=== PATIENT | male | born 1955 | race Caucasian/White ===

== ENCOUNTER → 2017-08-19 | Outpatient (REF) | payer SELFPAY ==
[~2017-08-19] MED LIST: ASP325 PO; AZIT-9 PO; HCTZ PO; LIS10; LISI-362 PO; LOR5 PO; MET500; OMEP-218 PO; SIMV10TA98 PO
== END ==
LOC: ZZSENDIN 10:02
PROVIDERS: ATTEND Physician Assistant Medical
DX: R07.89 Other chest pain (principal)
CPT/HCPCS: 84484

== ENCOUNTER → 2017-11-11 | Outpatient (CLI) | payer SELFPAY ==
--- NOTE | 2017-11-11 11:38 | RADIOLOGY IMAGING REPORT ---
FACILITY: [facility] - [place], [place] PATIENT NAME: Dedrick Estevez : 1955 MR: [id number] V: [id number] EXAM DATE: ORDERING PHYSICIAN: PARKER CORTEZ TECHNOLOGIST: Location: [facility] [place] Patient: Dedrick Estevez : 1955 Visit/Account:[id number] Date of Sevice: 11/11/2017 Exam type: HAND COMPLETE LEFT History: Pain in left hand with swelling Comparison: February 20, 2007. Findings: There is a small metallic density foreign body projecting in the subcutaneous soft tissues adjacent t o the proximal phalanx of the left thumb was present on the prior study.. There are mild to moderate degenerative changes seen throughout the interphalangeal joints most prominent involving the DIP danielle nts which are slightly increased when compared to the prior study. There are mild to moderate degene rative changes seen at the radiocarpal joint and mild degenerative changes involving the first carpom etacarpal articulation IMPRESSION: 1. Degenerative changes of the left hand as described above slightly increased when compared the elie or study at the DIP joints Report Dictated By: Ruby Araya MD at 11/11/2017 11:31 AM Report E-Signed By: Ruby Araya MD at 11/11/2017 11:35 AM WSN:[email or web address]
== END ==
LOC: RAD 11:02
PROVIDERS: ATTEND Physician Assistant Medical
DX: M81.0 Age-related osteoporosis without current pathological fracture (principal); M79.5 Residual foreign body in soft tissue

== ENCOUNTER 2017-12-07 17:38 | Emergency (ER) | payer OTHER ==
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
[2017-12-07] MEDS ORDERED: traMADol 50 MG TAB PO ONE (17:55)
--- NOTE | 2017-12-07 19:42 | RADIOLOGY IMAGING REPORT ---
FACILITY: [facility] PATIENT NAME: Dedrick Estevez : 1955 MR: [id number] V: [id number] EXAM DATE: ORDERING PHYSICIAN: HARSHAL ROSADO TECHNOLOGIST: Location: [facility] [place] Patient: Dedrick Estevez : 1955 Visit/Account:[id number] Date of Sevice: 12/07/2017 KNEE 3 VIEW RIGHT Indication: Right knee pain after injury on Thursday. Comparison: None available Findings: 3 views right knee were obtained. No fracture or dislocation. No significant joint effusion. No bony lesions. There is tricompartmental osteoarthritic changes was are at least mild. These include joint space narrowing, osteophytes and t ibial eminence spurring. Soft tissues show mild edema. No radiopaque foreign body. IMPRESSION: 1.No acute osseous abnormality of the right knee 2. Osteoarthritis. Report Dictated By: Bruce Eastman at 12/07/2017 7:35 PM Report E-Signed By: Bruce Eastman at 12/07/2017 7:37 PM WSN:[id number]
--- NOTE | 2017-12-07 19:43 | RADIOLOGY IMAGING REPORT ---
FACILITY: [facility] - [place] PATIENT NAME: Dedrick Estevez : 1955 MR: [id number] V: [id number] EXAM DATE: ORDERING PHYSICIAN: HARSHAL ROSADO TECHNOLOGIST: Location: [facility] - [place] Patient: Dedrick Estevez : 1955 Visit/Account:[id number] Date of Sevice: 12/07/2017 TIBIA FIBULA RIGHT Indication: Right lower leg pain after injury on Thursday. Comparison: None available Findings: Two views right tibia and fibula show no acute fracture or dislocation. No bony lesions or past abnor mality. Soft tissue edema seen anteriorly. The superior anterior soft tissues do show couple tiny densities which could be calcifications or rad iopaque foreign body. IMPRESSION: No acute osseous abnormality right tibia/fibula. A couple tiny densities in the anterior soft tissue s could represent calcifications or tiny radiopaque foreign body. Report Dictated By: Bruce Eastman at 12/07/2017 7:37 PM Report E-Signed By: Bruce Eastman at 12/07/2017 7:39 PM WSN:[id number]
[2017-12-07] MEDS ORDERED: TRAM-420 PO (19:44)
[2017-12-07] MEDS ORDERED: traMADol 50 MG TAB TH 2 TAB/BOTTLE PO ONE (19:45)
[2017-12-07 19:47] VITALS: BP 147/96
== END 2017-12-07 20:00 | disposition home or self-care (01) ==
LOC: ER 18:07
DX: S83.91XA Sprain of unspecified site of right knee, initial encounter (principal)
CPT/HCPCS: 73562; 73590; 99284; L1830

== ENCOUNTER → 2018-02-09 | Outpatient (CLI) | payer OTHER ==
[~2018-02-09] MED LIST changes: +REGADENOSON 0.4 MG/5 ML SYR ONE; +TRAM-420 PO
--- NOTE | 2018-02-09 18:31 | RT STRESS TEST REPORT ---
FACILITY: [facility] - [place], [place] PATIENT NAME: ANAND BRUNSON : [id number] MR: [id number] V: [id number] EXAM DATE: ORDERING PHYSICIAN: SCOT REARDON TECHNOLOGIST: Pedro Acquisition Time: 2018-02-09 14:31:25 Total Exercise Time: 00:01:00 Test Indications: Post DC Medications: SEE NUC MED SHEET Protocol: LEXISCAN Max HR: 092 BPM 58% of Pred: 157 BPM Max BP: 161/093 mmHG Max Work Load: 1.0 METS He had no chest pain or ST depression during the test. See the nuclear images for details. Confirmed by ERICK GUTIERREZ ([id number]) on 02/09/2018 6:32:30 PM Referred By: Scot Hurtado Overread By: ERICK GUTIERREZ
--- NOTE | 2018-02-10 12:08 | RADIOLOGY IMAGING REPORT ---
FACILITY: [facility] - [place] PATIENT NAME: Dedrick Estevez : 1955 MR: [id number] V: [id number] EXAM DATE: ORDERING PHYSICIAN: SCOT REARDON TECHNOLOGIST: Location: [facility] - [place] Patient: Dedrick Estevez : 1955 Visit/Account:[id number] Date of Sevice: 02/09/2018 EXAMINATION: Single isotope SPECT imaging with regadenoson infusion and gated SPECT imaging. DATE OF EXAMINATION: February 09, 2018. DATE OF INTERPRETATION: February 10, 2018. REQUESTING PHYSICIAN: SCOT REARDON. INDICATION: The patient is a 62-year-old male evaluated for chest pain. PROCEDURE: After informed consent the patient received an intravenous injection of 12.3 mCi of Tc-99 m sestamibi followed at an appropriate time interval by rest imaging. The patient then subsequently received an intravenous infusion of 0.4 mg of regadenoson per protocol without complication. Resting heart rate was 67 bpm with a peak heart rate of 92 bpm. Blood pressure at rest was 148 / 103 and fo llowing infusion was 153 / 94. Baseline EKG demonstrates normal sinus rhythm with poor R-wave progre ssion. There were no EKG changes of ischemia following infusion. Symptoms were nonspecific. The pa tient then received an intravenous injection of 29.7 mCi of Tc-99m sestamibi followed by stress imagi ng. RAW DATA: Examination of the summed raw data revealed a good quality study. MYOCARDIAL PERFUSION: The tomographic images demonstrate a mild decrease in myocardial perfusion tra cer uptake in the basal inferior wall seen on both stress and rest images. No reversible defect noted . GATED IMAGES: The gated images demonstrate an ejection fraction 67% with no wall motion abnormality. IMPRESSION: 1. Normal myocardial perfusion scan with no evidence of ischemia. The mild fixed defect in the basal inferior wall is likely diaphragm attenuation artifact 2. Normal myocardial perfusion scan. 3. Normal LV systolic function; LVEF 67%. 4. Based on the results of this exam, the patient appears to be at low risk for future cardiovascular events. Report Dictated By: Tri Frye at 02/10/2018 12:00 PM Report E-Signed By: Tri Frye at 02/10/2018 12:02 PM WSN:[id number]
== END ==
LOC: NUC 02:06
PROVIDERS: ATTEND Anesthesiology
DX: Z01.812 Encounter for preprocedural laboratory examination (principal); E11.9 Type 2 diabetes mellitus without complications; R07.9 Chest pain, unspecified; M94.261 Chondromalacia, right knee
CPT/HCPCS: 36415; 78452; 83036; 93017; A9500; J2785; 82040; 82247; 82310; 82374; 82435; 82565; 82947; 84075; 84132; 84155; 84295; 84450; 84460; 84520

== ENCOUNTER 2018-05-10 01:41 | Observation (INO) | payer OTHER ==
[2018-05-07 17:59] LABS: PLATELET COUNT, AUTOMATED 232 K/uL (150-450)
[~2018-05-10] VITALS: Ht 154.9 cm; Wt 97.5 kg
[~2018-05-10 01:41] MED LIST changes: +ASPI-1471 PO; +HYDR-2966 PO; -MET500; +MET500 PO; -REGADENOSON 0.4 MG/5 ML SYR ONE
[2018-05-10] MEDS ORDERED: MIDAZOLAM 2 MG/2 ML VIAL IVP PRN (06:30)
[2018-05-10] MEDS ORDERED: LIDOCAINE/SOD BICARB 8.4% SYR ID ONE (06:30)
[2018-05-10] MEDS ORDERED: NORMOSOL R SOLN(*) 1000 ML BAG 1,000 ML IV PRN (06:30)
[2018-05-10] MEDS ORDERED: FAMOTIDINE 20 MG TAB PO ONE (06:30)
[2018-05-10] MEDS ORDERED: ceFAZolin(*) 1 GM VIAL 1 GM in NS(*) 0.9% 100 ML ADDVANT BAG 100 ML IVPB ONE (06:30)
[2018-05-10 07:12] VITALS: BP 150/91
[2018-05-10] MEDS ORDERED: DEXAMETHASONE SOD PHOS 10MG/ML ONE (08:04)
[2018-05-10] MEDS ORDERED: ONDANSETRON 4 MG/2 ML VIAL ONE (08:04)
[2018-05-10] MEDS ORDERED: PROPOFOL EMUL(*) 10MG/ML 20 ML 20 ML ONE (08:04)
[2018-05-10] MEDS ORDERED: KETAMINE HCL-NS 50 MG/5 ML SYR ONE (08:04)
[2018-05-10] MEDS ORDERED: LIDOCAINE MPF 1% 5 ML VIAL ONE (08:04)
[2018-05-10] MEDS ORDERED: fentaNYL CITR 100 MCG/2 ML AMP ONE ×3 (08:04→10:59)
--- NOTE | 2018-05-10 08:19 | HISTORY AND PHYSICAL ---
DATE OF ADMISSION: May 10, 2018 CHIEF COMPLAINT Left hydrocele. HISTORY OF PRESENT ILLNESS The patient is a 62-year-old white male with a 2 year history of left scrotal swelling consistent with increasing hydrocele. He originally presented in June 2016 with left scrotal discomfort and swelling. At that time, an ultrasound revealed a left hydrocele with increased vascularity of the left epididymal head consistent with epididymitis. He was treated with antibiotics. The pain resolved. Follow up ultrasound in December 2016 revealed no evidence of epididymitis, testicular masses or other anomalies, except for a mild increase in his hydrocele. The patient was seen several weeks ago with increasing discomfort in the size of his hydrocele. Physical exam revealed a dense hydrocele on the left side without evidence of inguinal hernia and he is now electing to undergo hydrocele repair. Given the significant size of the hydrocele, we plan to place a drain postoperatively and keep the patient overnight for observation. He understands the primary risk would be delayed swelling with hematoma formation. PAST MEDICAL HISTORY * Diabetes. * Hypertension. * Hypercholesterolemia. PAST SURGICAL HISTORY * Knee surgery. * Adult circumcision. * Biceps tendon repair of the right shoulder x 5 in 1991. ALLERGIES IBUPROFEN PERCOCET SOCIAL HISTORY The patient is . He lives in [place], [place]. 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 FAMILY HISTORY Noncontributory. REVIEW OF SYSTEMS The patient denies hematuria, abdominal or flank pain, productive cough, shortness of breath, chest pain, chronic headaches or bleeding disorder. PHYSICAL EXAMINATION GENERAL: The patient is a well-developed, well-nourished white male in no acute distress. HEENT: Normocephalic, atraumatic. CHEST: Clear to auscultation bilaterally. CV: Regular rate and rhythm. ABDOMEN: Soft, nontender, no masses are palpated. : Deferred to the OR. EXTREMITIES: Without clubbing, cyanosis, or edema. NEURO: Nonfocal. ASSESSMENT This is a 62-year-old white male with left hydrocele. PLAN We will perform a left hydrocelectomy. We will plan to put a drain in place overnight and keep him for observation. KANCHAN
[2018-05-10] MEDS ORDERED: POVIDONE IOD 10% OINT 30 GM TB TP ONE (08:32)
[2018-05-10] MEDS ORDERED: ROPIVACAINE 0.2% 20 ML VIAL ONE (08:33)
[2018-05-10] MEDS ORDERED: ACETAMINOPHEN(*)1000 MG/100 ML 100 ML IVPB ONE (10:27)
--- NOTE | 2018-05-10 11:30 | OPERATIVE REPORT 1 ---
EVENT DATE: May 10, 2018 SURGEON: Adelfo Garsia MD ANESTHESIOLOGIST: Remington Hall MD ANESTHESIA: General. PREOPERATIVE DIAGNOSIS Left hydrocele. POSTOPERATIVE DIAGNOSIS Left hydrocele. PROCEDURE PERFORMED Left hydrocelectomy. ESTIMATED BLOOD LOSS 20 cc. IV FLUIDS Crystalloids. DRAINS 19-Italian round silastic drain on left appendage scrotum. PATHOLOGY Hernia sac for permanent analysis. COMPLICATIONS None. CONDITION Patient taken to the recovery room awake and in stable condition. STATEMENT OF MEDICAL NECESSITY Patient is a 62-year old white male with slowly increasing left hydrocele for the past two years. When last seen in the Urology Clinic, it had increased significantly and was approximately 11 x 8 x 6 inches in dimensions. Prior ultrasound in December 2016 revealed a normal testis and no internal echoes or structures. He is now being brought to the operating room for planned hydrocelectomy. DESCRIPTION OF PROCEDURE The patient was brought to the operating room, where general anesthetic was obtained. He was laid supine on the operating room table. After all pressures points were padded, he was prepped and draped sterilely. A 5 cm mid scrotal incision was made on the left hemiscrotum. It was taken down through the cartilage until the hydrocele sac was encountered. This was then delivered through the incision, removing surrounding cremasteric and cartilaginous fibers. The hydrocele sac was then entered sharply. A large amount of clear straw fluid was removed. The testis and epididymis were then inspected. They appeared normal. His epididymis testis was fulgurated. The redundant sac was then sharpy removed from around the testis and cord with the electrocautery. The edge was fulgurated with the electrocautery and was plicated posteriorly behind the cord structures with a running locking 3-0 Chromic stitch. Following this, orchiopexy was performed with interrupted 3-0 Chromic at the 3, 6 and 9 o'clock positions and the corresponding locations on the inner scrotum. At this point, a copious antibiotic solution was used to irrigate the wound. A cord block was given with 0.25% ropivacaine. It was also injected along the skin edge. At this point, a tonsil was used to make a separate stab wound incision in the dependent portion of the scrotum on the left side and a 19-close suction silastic drain was placed in this area and secured to the skin with a 2-0 silk stitch. The orchiopexy stitches were tied after ensuring the cord was not twisted. The drain was placed next to the testis and then the incision closed with a deep layer of 0 running locking 3-0 Chromic followed by interrupted 2-0 Chromic stitch and then the skin was reapproximated with a running 4-0 Monocryl stitch. Skin adhesive was placed along the skin edge. A sterile fluff dressing with scrotal support was placed. The patient was awakened in the operating room and taken to the recovery area in stable condition. PLAN We will keep the patient 23 hours and remove his drain in the morning. He will be allowed to be discharged home at that time on Tylenol, Colace and Bactrim. KANCHAN
[2018-05-10] MEDS ORDERED: MAG HYD/AL HYD/SIMETH 30ML UDC PO PRN (12:10)
[2018-05-10] MEDS ORDERED: ZOLPIDEM TARTRATE 5 MG TAB PO PRN (12:10)
[2018-05-10] MEDS ORDERED: NS(*) 0.9% 1000 ML BAG 1,000 ML IV PRN (12:10)
[2018-05-10] MEDS ORDERED: MORPHINE SULFATE 30 MG PCA IV PRN (12:20)
[2018-05-10] MEDS ORDERED: NALOXONE HCL 0.4 MG/ML VIAL IVP PRN (12:20)
[2018-05-10] MEDS ORDERED: PCA LOCKBOX KEYS XX PRN (12:20)
[2018-05-10] MEDS: ACETAMINOPHEN 500 MG TAB PO SCH ×2 (12:39→18:38)
[2018-05-10 20:15] VITALS: BP 135/80
[2018-05-10] MEDS: TRIMETH/SULFA DS 160-800MG TAB PO SCH (21:00)
[2018-05-10] MEDS ORDERED: TRIMETHOPRIM/SULFA 160-800 TH 2 TAB/BOTTLE PO SCH (21:00)
[2018-05-10] MEDS: SIMVASTATIN 20 MG TAB PO SCH (21:06)
[2018-05-10] MEDS: DOCUSATE SODIUM 100 MG CAP PO SCH (21:06)
[2018-05-11 00:42] VITALS: BP 121/77
[2018-05-11] MEDS: ACETAMINOPHEN 500 MG TAB PO SCH ×3 (00:44→13:00)
[2018-05-11 08:23] VITALS: BP 139/87
[2018-05-11] MEDS: metFORMIN HCL 500 MG TAB PO SCH (09:08)
[2018-05-11] MEDS: HYDROCHLOROTHIAZIDE 25 MG TAB PO SCH (09:08)
[2018-05-11] MEDS: DOCUSATE SODIUM 100 MG CAP PO SCH ×2 (09:08→20:19)
[2018-05-11] MEDS: TRIMETH/SULFA DS 160-800MG TAB PO SCH ×2 (09:08→20:19)
[2018-05-11 09:32] VITALS: Ht 154.9 cm; Wt 97.5 kg
[2018-05-11] MEDS ORDERED: DOCU-416 PO (09:55)
[2018-05-11] MEDS ORDERED: ACET-1966 PO (09:55)
[2018-05-11] MEDS ORDERED: SULF-198 PO (09:56)
[2018-05-11] MEDS ORDERED: TRAM-420 PO (09:56)
[2018-05-11] MEDS ORDERED: ASPIRIN 325 MG TAB PO ONE (13:30)
--- NOTE | 2018-05-11 14:18 | EKG ---
FACILITY: [facility] PATIENT NAME: ANAND BRUNSON : [id number] MR: [id number] V: [id number] EXAM DATE: ORDERING PHYSICIAN: TAB ADAMS TECHNOLOGIST: LEIDY Clarke Reason : CP Blood Pressure : / mmHG Vent. Rate : 060 BPM Atrial Rate : 060 BPM P-R Int : 176 ms QRS Dur : 102 ms QT Int : 424 ms P-R-T Axes : 045 -31 020 degrees QTc Int : 424 ms Normal sinus rhythm Left axis deviation Abnormal ECG When compared with ECG of 05-OCT-2013 17:50, No significant change was found Confirmed by Tab Alvarado ([id number]) on 05/11/2018 11:25:38 PM Referred By: KRISHNA Confirmed By:Tab Adams
[2018-05-11] MEDS ORDERED: traMADol 50 MG TAB PO PRN (14:25)
--- NOTE | 2018-05-11 15:02 | RADIOLOGY IMAGING REPORT ---
FACILITY: [facility] PATIENT NAME: Dedrick Estevez : 1955 MR: [id number] V: [id number] EXAM DATE: ORDERING PHYSICIAN: TAB JOHNSON TECHNOLOGIST: Location: [facility] - [place] Patient: Dedrick Estevez : 1955 Visit/Account:[id number] Date of Sevice: 05/11/2018 Exam type: CHEST SINGLE AP History: cHEST pAIN Comparison: October 05, 2013. Findings: Cardiac silhouette appears mildly enlarged. There is no evidence of acute-appearing pulmonary infilt rates, pleural effusions or pulmonary edema. No evidence of a pneumothorax or pneumomediastinum. In completely imaged are postsurgical changes of the right shoulder. IMPRESSION: 1. Cardiac silhouette appears mildly enlarged although there is no evidence of acute-appearing pulmo nary consolidation Report Dictated By: Ruby Araya MD at 05/11/2018 2:57 PM Report E-Signed By: Ruby Araya MD at 05/11/2018 2:59 PM WSN:[email or web address]
[2018-05-11 20:13] VITALS: BP 128/84
[2018-05-11] MEDS: SIMVASTATIN 20 MG TAB PO SCH (20:19)
--- NOTE | 2018-05-11 22:45 | Hospitalist Consultation ---
History of Present Illness Requesting Physician Dr Garsia Reason for Consult Chest Pain Chief Complaint Chest pain History of Present Illness 62M admitted after hydrocele surgery. PMHx significant for DM, HTN, chronic pain. Patient began having chest pain located in center of chest and under rib cage as well as facial pain just before being discharged. Dr Garsia consulted medicine service to evaluate. Rates pain 6-10/16 no previous episodes. Family history of heart disease but none at early age. History Other Past Medical Hx as per HPI Home Meds Reported Medications Tramadol Hcl (TRAMADOL HCL) 50 Mg Tablet, 50-100 MG PO Q6H, #30 TAB 05/11/18 Sulfamethoxazole/Trimet 800-160 Mg Tab (BACTRIM DS TABLET) 1 Each Tablet, 1 TAB PO Q12H, #10 TAB 05/11/18 Acetaminophen (TYLENOL) 325 Mg Tablet, 1000 MG PO Q6H, #20 TAB 05/11/18 Docusate Sodium (COLACE) 100 Mg Capsule, 100 MG PO BID, #30 CAPSULE 05/11/18 Aspirin (ASPIR 81) 81 Mg Tablet.dr, 81 MG PO QDAY, TAB 05/03/18 Hydrochlorothiazide (HYDROCHLOROTHIAZIDE) 25 Mg Tablet, 0.5 TAB PO QDAY, TAB 05/03/18 Simvastatin (SIMVASTATIN) 10 Mg Tablet, 10 MG PO HS, TAB 10/05/13 Metformin Hcl (GLUCOPHAGE (OR EQUIV)) 500 Mg Tab, 500 MG PO DAILY 04/11/12 Allergies: Coded Allergies: ibuprofen (Verified Allergy, Intermediate, HIVES, 12/07/17) bacitracin (Verified Allergy, Mild, RASH, 05/03/18) neomycin (Verified Allergy, Mild, RASH, 05/03/18) oxycodone (Verified Allergy, Mild, NAUSEA, 12/07/17) polymyxin B (Verified Allergy, Mild, RASH, 05/03/18) Uncoded Allergies: CODIENE (Allergy, Mild, NAUSEA, 02/20/07) Patient History: FH: CHF (congestive heart failure) MOTHER FH: [place] (myocardial infarction) BROTHER OR SISTER BROTHER OR SISTER FH: pneumonia FATHER FH: prostate cancer BROTHER OR SISTER Hx Smoking: Yes (1-2 PPD FOR 5-6 YRS) Smoking Status: Former Smoker When Quit Tobacco?: 1996 Caffeine Intake: Coffee Caffeine/Cups Per Day: 2 Hx Alcohol Use: Yes Alcohol Used: Beer Hx Substance Use Disorder: No Social Drug Use: Never Review of Systems All Systems Reviewed/Normal: Yes, Except as Noted Cardiovascular: Chest Pain Exam Vital Signs Vital Signs Date Time Temp Pulse Resp B/P (MAP) Pulse Ox O2 Delivery O2 Flow Rate FiO2 05/11/18 20:13 97.8 61 18 128/84 (99) 95 Nasal Cannula 1.0 General Appearance: Alert, Awake, No Acute Distress, Afebrile ENT: Normal Cardiovascular: Normal Rhythm & Peripheral Pulses Respiratory: No Respiratory Distress GI: Abd Soft and Non-Tender Musculoskeletal: No Weakness/Pain Extremities: Soft and Non Tender, Warm, Pulses, Perfused; No Edema Integumentary: Skin Intact without Lesion / Mass Medical Decision Making Data Points Result Diagram: 05/07/18174505/07/181745 EKG / Imaging EKG Interpretation NSR Monitor Interpretation: Normal Sinus Rhythm Assessment and Plan Problems: (1) Atypical chest pain Status: Acute Assessment & Plan: Atypical chest pain in patient with risk factors of DM, overweight, previous smoker. EKG no acute changes, troponin negative x2, myocardial perfusion scan shoed no inducible ischemia. Highly unlikely the pain patient is reporting is cardiac in nature. CP resolved during the day, did give 325 ASA. Will get third troponin. If negative medically would be ok for discharge tomorrow morning. Venous Thromboembolism Antithrombotics Is Pt On Any Antithrombotics?: No Exam Sepsis Risk: No Definite Risk KELLER TAB JOHNSON DO May 11, 2018 22:45
[2018-05-12 05:15] VITALS: BP 134/96
[2018-05-12 07:18] VITALS: BP 135/105
[2018-05-12] MEDS: metFORMIN HCL 500 MG TAB PO SCH (08:43)
[2018-05-12] MEDS: HYDROCHLOROTHIAZIDE 25 MG TAB PO SCH (08:43)
[2018-05-12] MEDS: DOCUSATE SODIUM 100 MG CAP PO SCH (08:43)
[2018-05-12] MEDS: TRIMETH/SULFA DS 160-800MG TAB PO SCH (08:43)
--- NOTE | 2018-05-12 11:35 | Hospitalist Progress Note ---
Subjective Progress Notes Subjective He is doing well. No complaints this AM. Troponins negative x3. Physical Exam Vital Signs Date Time Temp Pulse Resp B/P (MAP) Pulse Ox O2 Delivery O2 Flow Rate FiO2 05/12/18 07:21 92 Nasal Cannula 0.5 05/12/18 07:18 98.3 71 18 135/105 (115) l Intake and Output 05/12/18 07:00 Intake Total 980 ml Output Total 1675 ml Balance -695 ml Intake Oral 980 ml Output Urine Total 1675 ml # Voids 1 General Appearance: Alert, Awake Monitor Interpretation: Normal Sinus Rhythm Assessment and Plan Problems: (1) Atypical chest pain Status: Acute Assessment & Plan: Atypical chest pain in patient with risk factors of DM, overweight, previous smoker. EKG no acute changes, troponin negative x3, myocardial perfusion scan 02/2018 showed no evidence ischemia. Unlikely the pain is cardiac in nature. He should be able to discharge. I did advise him to follow up with Dr. Hurtado in the next 1-2 weeks or sooner if any problems. Exam Sepsis Risk: No Definite Risk FAINA WELCH MD May 12, 2018 11:35
--- NOTE | 2018-05-12 23:14 | DISCHARGE SUMMARY ---
DATE OF ADMISSION: May 10, 2018 DATE OF DISCHARGE: May 12, 2018 PRIMARY DIAGNOSIS Left hydrocele. HOSPITAL COURSE Patient was admitted to the hospital on the 10 of May, at which time he was taken to the operating room and underwent a left hydrocelectomy. He was left with an 18-Paraguayan closed suction drain. He was admitted for observation overnight. He had an uneventful night. He remained afebrile with stable vital signs and was taking good p.o. in the morning. His drain was removed. He was being prepared for discharge and developed some atypical chest pain. He was evaluated by the hospitalist, who obtained a normal EKG, chest x-ray, and troponin level times three. He was asymptomatic on the morning of the and deemed ready for discharge. CONDITION AT TIME OF DISCHARGE Good. ACTIVITIES Ad kelly. DIET Regular. DISCHARGE MEDICATIONS 1. Tylenol. 2. Tramadol. 3. Bactrim. FOLLOWUP PLAN He will be seen in the Urology Clinic in four to six weeks for followup exam. He was also given an appointment to follow up with Dr. Hurtado for his atypical chest pain. KANCHAN
== END 2018-05-12 09:13 | disposition home or self-care (01) ==
LOC: OR 01:41 → MED 11:53
PROVIDERS: ADMIT Urology; ATTEND Urology
DX: N43.3 Hydrocele, unspecified (principal); I10 Essential (primary) hypertension; E11.9 Type 2 diabetes mellitus without complications; E78.00 Pure hypercholesterolemia, unspecified; R07.9 Chest pain, unspecified
CPT/HCPCS: 36415; 36416; 55040; 71045; 81001; 82948; 84484; 85025; 87088; 88305; 93005; G0378; J0131; J0690; J1100; J2001; J2270; J2405; J2704; J2795; J3010; J3490; J7030; J7050; 82040; 82247; 82310; 82374; 82435; 82565; 82947; 84075; 84132; 84155; 84295; 84450; 84460; 84520